=== PATIENT | female | born 1975 | race Caucasian/White ===

== ENCOUNTER 2022-10-04 20:52 | Outpatient (REF) | payer OTHER, SELFPAY ==
[2022-10-11 16:09] LABS: Age Gdln ACOG Testing Note (.); HPV Aptima Negative (Negative); IGP, Aptima HPV, rfx 16/18,45 Note (.)
== END 2022-10-04 20:53 | disposition home or self-care (01) ==
LOC: LAB 20:52
PROVIDERS: PCP Family Medicine; Visit Provider Physician Assistant
DX: Z12.4 Encounter for screening for malignant neoplasm of cervix (principal)
CPT/HCPCS: 87624; G0145

== ENCOUNTER 2022-12-26 07:21 | Outpatient (OUT) | payer OTHER, SELFPAY ==
--- NOTE | 2022-12-26 07:27 | MM_ITS ---
Patient Name: DOMINIK EVANGELISTA MR#: [id number] : 1975 Exam Date: 12/26/2022 Ordering Doctor: DR Rodrick Pepe . RADIOLOGY REPORT PROCEDURE: MM TOMOSYNTHESIS SCREENING BI COMPARISON: MG MAMM SCREEN 3D MARÍA CAD, 11/12/2021. MG MAMM SCREEN 3D MARÍA CAD, 11/11/2020. MG MAMM SCREEN MARÍA W CAD, 06/12/2018. MG MAMM MARÍA SCRN W CAD DIG, 02/21/2014. INDICATIONS: Screening mammogram Calculator Name NCI Breast Cancer Risk Assessment Tool 5 Year Breast Cancer Risk 1.70% Lifetime Breast Cancer Risk 18.50% Personal Breast Cancer No Personal Ovarian Cancer No Treatments None Family Cancers Sister with breast cancer at age 45; Father with lung cancer at age 67. LOCATION: [facility] BREAST COMPOSITION: Scattered areas fibroglandular density. FINDINGS: DIAGNOSTIC CATEGORY 1--NEGATIVE. RIGHT BREAST: No significant suspicious finding. No significant change has occurred. LEFT BREAST: No significant suspicious finding. No significant change has occurred. RECOMMENDATIONS: ROUTINE MAMMOGRAM AND CLINICAL EVALUATION IN 12 MONTHS. PLEASE NOTE: A NORMAL MAMMOGRAM DOES NOT EXCLUDE THE POSSIBILITY OF BREAST CANCER. A CLINICALLY SUSPICIOUS PALPABLE LUMP SHOULD BE BIOPSIED. Dictated by: Eyad Salinas M.D. on 12/26/2022 at 08:38 Approved by: Eyad Salinas M.D. on 12/26/2022 at 08:46
== END 2022-12-26 07:22 | disposition home or self-care (01) ==
LOC: MAMMO 07:22
PROVIDERS: PCP Family Medicine; Visit Provider Obstetrics & Gynecology
DX: Z12.31 Encounter for screening mammogram for malignant neoplasm of breast (principal); Z80.3 Family history of malignant neoplasm of breast; Z80.1 Family history of malignant neoplasm of trachea, bronchus and lung
CPT/HCPCS: 77063; 77067

== ENCOUNTER 2023-11-07 19:06 | Outpatient (REF) | payer OTHER, SELFPAY ==
--- OUTSIDE RECORDS SUMMARY | 2023-11-07 19:09 | XMS_ITS | CCD ---
Author Organization [facility] CliniSyal Care Team Providers Care Cad Detailer Name Role Phone Beatriz Hernandez Primary Care Physician [phone] MARY ., DR HENDERSON Primary Care Unavailable NILL ., DR PARKS Admitting Unavailable NILL ., DR PARKS Consulting Unavailable NILL ., DR PARKS Attending Unavailable HOY ., DR HENDERSON Primary Care Unavailable NELI ., DR MOORE Admitting Unavailable NELI ., DR MOORE Attending Unavailable PHOEN[place], DR SUZETTE Gordon Consulting Unavailable NELI ., DR MOORE Consulting Unavailable NILLJuan Attending Unavailable BGLJuan Attending Unavailable Beatriz Hernandez Referring Unavailable NILLJuan Attending Unavailable Allergies Allergy Classification Reported Allergen(s) Allergy Type Date of Onset Reaction(s) Facility (1 source) No Known Medication Allergies; Translations: [No Known Medication Allergies] Propensity to adverse reactions (disorder) [facility] Repository Problems Active Problems Problem Classification Problem Date Documented Da te Episodic/Chronic Mood disorders (2 sources) Depressive disorder 04-01-2022 Chronic Other nutritional; endocrine; and metabolic disorders (2 sources) Overweight in adulthood with body mass index of 25 or more but less than 30 04-06-2022 Episodic Other skin disorders (2 sources) Epidermoid cyst; Translations: [Epidermal cyst] Onset: 04-06-2022 Episodic Other skin disorders (2 sources) Epidermoid cyst of skin of neck 04-06-2022 Episodic Other skin disorders (4 sources) Epidermal cyst; Translations: [EPIDERMAL CYST] Onset: 04-20-2022 Episodic Substance-related disorders (1 source) Nicotine dependence, cigarettes, uncomplicated; Translations: [NICOTINE DEPEND CIGARETTES UNCOMP] Onset: 04-27-2022 Chronic Past or Other Problems Problem Classification Problem Date Documented Da te Episodic/Chronic Other screening for suspected conditions (not mental disorders or infectious disease) (4 sources) Encounter for screening mammogram for malignant neoplasm of breast; Translations: [ENC SCR MAMMO MALIG NEOPLASM BREAST] Onset: 11-12-2021 Episodic Residual codes; unclassified (1 source) Family history of malignant neoplasm of breast; Translations: [FAMILY HX MALIG NEOPLASM OF BREAST] Onset: 11-15-2021 Episodic Residual codes; unclassified (1 source) Family history of malignant neoplasm of trachea, bronchus and lung; Translations: [FAM HX MALIG NEOPLSM TRACH BRON LNG] Onset: 11-15-2021 Episodic Results Test Name Value Interpretation Reference Range Facil ity Ambulatory Visit Summaryon 0 05-03-2022 Ambulatory Visit Summary DOMINIK EVANGELISTA :1975 Visit Date:05/03/2022 Ambulatory Visit Instructions Your Diagnosis Epidermal cyst of neck Your Care Team Attending Physician - KELLY HECK, Juan Davila Primary Care Physician - Mary HECK, Beatriz Sawyer Performed Excision of cyst (04/20/2022), Endocervical biopsy. Allergies No Known Allergies No Known Medication Allergies Problems Ongoing - Any problem that you are currently receiving treatment for. BMI 27.0-27.9,adult Depression Epidermal cyst of neck Normal [facility] General Surgery Office/Clini c Noteon 05-03-2022 General Surgery Office/Clinic Note Chief Complaint post operative follow up HPI Staff 13 day post operative follow up post excisional biopsy epidermal cyst posterior neck. History of Present Illness 2 weeks s/p excision ruptured, inflamed epidermal cyst posterior neck; doing well, denies pain, no drainage; pathology consistent with ruptured epidermal cyst. Review of Systems ROS - Provider Constitutional: no fever, no sweats, no weight loss. Eyes: no glasses, no blurred vision, no visual loss. ENMT: no dentures, no hoarseness, no swallowing difficulties, no hearing loss, no ear infection(s), no nose bleeds. Cardiovascular: normal blood pressure, no chest pain, regular heartbeat, no heart murmur. Respiratory: no shortness of breath, no cough, no asthma, no wheezing. Gastrointestinal: no nausea, no vomiting, no diarrhea, no constipation, no blood in stool, no change in bowel habits, no abdominal pain, no hepatitis. Genitourinary: no kidney stones, no urine infection, no dysuria. Musculoskeletal: no pain, no weakness. Skin: no changing moles, no rash, no skin lumps. Neurologic: no seizures, no epilepsy, no headache. Psychiatric: no emotional or psychiatric problem. Heme/Lymph: no bleeding problems, no anemia, no blood clots, no transfusions. Allergy/Immunologic: no swollen lymph nodes/glands, no IV drug abuse. Other: Additional ROS info: Except as noted in the above Review of Systems and in the History of Present Illness, all other systems have been reviewed and are negative or noncontributory. Physical Exam skin: incision healing well, no erythema or drainage, no ecchymoses Assessment/Plan 1. Epidermal cyst of neck (L72.0: Epidermal cyst) doing well, sutures removed; call with problems/questions. Follow-up No qualifying data available Problem List/Past Medical History Ongoing BMI 27.0-27.9,adult Depression Epidermal cyst of neck Historical No qualifying data Procedure/Surgical History Excision of cyst (04/20/2022), Endocervical biopsy. Medications No active medications Allergies No Known Allergies No Known Medication Allergies Social History Alcohol - Denies Alcohol Use, 04/06/2022 Substance Abuse - Denies Substance Abuse, 04/06/2022 Tobacco 10 or more cigarettes (1/2 pack or more)/day in last 30 days Tobacco Use:. Never Smokeless Tobacco Use:. Cigarettes, 10 per day. Started age 16.0 Years. Yes, 04/06/2022 Family History Diabetes mellitus type 2: Mother. Primary malignant neoplasm of female breast: Sister. Immunizations Vaccine Date Status Comments influenza virus vaccine, inactivated - Not Given Patient Refuses SARS-CoV-2 mRNA (minerva 5y-11y) vac - Not Given Patient Refuses Normal [facility] Comment on above: Result Comment: Elec tronically Signed By: KELLY HECK, Juan Castelan\Date and Time Signed: 05/03/22 14:37 EDT Pathology Noteon 05-01-2022 Pathology Note [id number] .00CD:127 Normal [facility] Operative Reporton Operative Report [id number]. 00CD:127 Normal [facility] Consent for Procedure/Surger yon 04-07-2022 Consent for Procedure/Surgery [id number] .00CD:127 Normal [facility] Facesheeton 04-07-2022 Facesheet [id number] .00CD:127 [facility] Ambulatory Visit Summaryon 0 04-06-2022 Ambulatory Visit Summary DOMINIK EVANGELISTA :1975 Visit Date:04/06/2022 Ambulatory Visit Instructions Your Care Team Attending Physician - KLELY HECK, Juan Davila Primary Care Physician - Mary HECK, Beatriz Referring Physician - Beatriz Hernandez MD Procedures Performed Endocervical biopsy. Discharge Vitals Heart Rate (Peripheral) 76 Respiratory Rate 16 Blood Pressure 118/76 Height 165.1 cm Height 65 in Weight 75.9 kg Weight 166.98 lb BMI 27.85 Medications and Immunizations Administered Not Given influenza virus vaccine, inactivated, Patient Refuses SARS-CoV-2 mRNA (tozinameran 5y-11y) vac, Patient Refuses Allergies No Known Allergies No Known Medication Allergies Problems Ongoing - Any problem that you are currently receiving treatment for. BMI 27.0-27.9,adult Depression [facility] Physician Referralon 023 Physician Referral [id number] .[id number]:127 Normal [facility] MG MAMM SCREEN 3D MARÍA CADon 11-12-2021 MG MAMM SCREEN 3D MARÍA CAD Patient: DOMINIK EVANGELISTA. Exam Date: 11/12/2021 : 1975 Gender:F Ordering : DR TERESA QUINTEROS . Admission #: [id number] Family : DR BEATRIZ HERNANDEZ . Order #: [id number] CLICK HERE TO VIEW EXAM RADIOLOGY REPORT PROCEDURE: MAMMOGRAM SCREENING 3D BILATERAL CAD COMPARISON: MG MAMM SCREEN MARÍA W CAD, 06/12/2018. MG MAMM SCREEN 3D MARÍA CAD, 11/11/2020. INDICATIONS: Screening mammography Calculator Name NCI Breast Cancer Risk Assessment Tool 5 Year Breast Cancer Risk 1.60% Lifetime Breast Cancer Risk 18.60% Personal Breast Cancer No Personal Ovarian Cancer No Treatments None Family Cancers Sister with breast cancer at age 45; Father with lung cancer at age 67. LOCATION: [facility] BREAST COMPOSITION: Scattered areas fibroglandular density. FINDINGS: DIAGNOSTIC CATEGORY 1--NEGATIVE. NO CHANGE FROM COMPARISON ASSESSMENT. Scattered benign-appearing calcifications are present. RIGHT BREAST: No significant suspicious finding. LEFT BREAST: No significant suspicious finding. RECOMMENDATIONS: ROUTINE MAMMOGRAM AND CLINICAL EVALUATION IN 12 MONTHS. PLEASE NOTE: A NORMAL MAMMOGRAM DOES NOT EXCLUDE THE POSSIBILITY OF BREAST CANCER. A CLINICALLY SUSPICIOUS PALPABLE LUMP SHOULD BE BIOPSIED. Dictated by: Suzette Varela MD on 11/12/2021 at 08:42 Approved by: Suzette Varela MD on 11/12/2021 at 08:43 Normal [facility] Vital Signs Date Time Vital Sign Value Performing Clinician Chanell bueno 04-06-2022 14:29-0500 Blood Pressure Location Juan MENDOZA [facility] 04-06-2022 14:29-0500 Diastolic blood pressure 76 mm[Hg] Juan PEDERSONL [facility] 04-06-2022 14:29-0500 Heart rate 76 /min Juan PEDERSONL [facility] 04-06-2022 14:29-0500 Respiratory rate 16 /min Juan PEDERSONL [facility] 04-06-2022 14:29-0500 Systolic blood pressure 118 mm[Hg] Juan PEDERSONL [facility] Encounters Encounter Date Encounter Type Care Provider Facility Start: 05-03-2022 End: 05-04-2022 ambulatory Juan MENDOZA Facility:[facility] Start: 05-03-2022 End: 05-03-2022 Patient encounter procedure Juan MENDOZA [facility] Start: 04-20-2022 End: 04-21-[address] BEATRIZ HERNANDEZ . Facility: Start: 04-06-2022 End: 04-07-2022 ambulatory Juan MENDOZA Facility:[facility] Start: 04-06-2022 End: 04-06-2022 Patient encounter procedure Juan MENDOZA General [facility] Start: 03-29-2022 ambulatory Juan MENDOZA Facility:[facility] Start: 11-12-2021 End: 11-13-[address] BEATRIZ HERNANDEZ . Facility: Procedures Date Procedure Procedure Detail Performing Clinician Start: 04-20-2022 Excision of cyst Michae yodit MENDOZA Endocervical biopsy Juan MENDOZA Immunizations Immunization Date Immunization Notes Care Provider Fa cility NEGATED: Highlighted row has not occurred!04-06-2022 influenza virus vaccine, unspecified formulation Juan MENDOZA [facility] NEGATED: Highlighted row has not occurred!04-06-2022 SARS-CoV-2 mRNA (tozinameran 5y-11y) vaccine Juan MENDOZA [facility] Payers Date Payer Category Payer Unknown [id number] [id number] 1975 Unknown [id number] [id number] [id number] 1975 Unknown [id number] [id number] [id number] 1975 Unknown [id number] 2.16.8 [id number] 1975 Unknown [id number] 2.16.8 [id number] 1959 Unknown [id number] 1957 Unknown [id number] Social History Date Type Detail Facility Start: 04-06-2022 Tobacco smoking status Heavy t obacco smoker (finding) [facility] Tobacco smoking status Never [facility] Sex Assigned At Female [facility] Functional Status Date Assessment Result Facility 04-06-2022 Functional Status N/A [facility] Clinical Note 04-20-2022 Note Date & Type Note Facility 04-20-2022 Note OPERATIVE NOTE OPERATION DATE: 04/20/2022 PREOPERATIVE DIAGNOSIS: Previously infected epidermal cyst posterior neck. POSTOPERATIVE DIAGNOSIS: Previously infected epidermal cyst posterior neck. PROCEDURE: Excisional biopsy epidermal cyst posterior neck. SURGEON: Juan Mendoza M.D. ANESTHESIA: Local with 0.5% Marcaine plain. ESTIMATED BLOOD LOSS: Less than 3 mL. INDICATIONS AND CONSENT: Patient is a 47-year-old female with a history of previously infected epidermal cyst of the posterior neck x2, with a recent episode of infection. She now presents for excision biopsy. Indications, risks, benefits, alternatives of proceeding were explained extensively to the patient, including the risks of bleeding, infection, scarring, pain, recurrence, need for further surgery. All of her questions were answered. Informed consent was obtained. PROCEDURE: Patient brought to the procedure room, placed in the left lateral decubitus position. The area was prepped and draped in the usual sterile fashion. It was anesthetized with 0.5% Marcaine plain. An elliptical incision was made over the incision, encompassing the central core, carried down through subcutaneous tissue using sharp dissection. A 1 cm inflamed epidermal cyst was identified and excised down to subcutaneous tissue. It was sent off to Pathology. The wound was irrigated. Deep subcutaneous tissue was re-approximated with interrupted 4-0 Monocryl suture. The skin was then closed with interrupted 4-0 nylon sutures. There was good hemostasis. Patient tolerated procedure, was discharged to home in good condition, is to follow up in 10 days for suture removal. She is to call sooner with any problems or questions. CC: Beatriz Hernandez M.D. [facility] Clinical Note 04-06-2022 Note Date & Type Note Facility 04-06-2022 Note Chief Complaint consultation for sebaceous cyst [facility] Staff 47 year old female presents on consultation from Dr. Hernandez for sebaceous cyst left posterior neck. Reports 2-3 week history of two tender nodules, one left posterior neck and the other base of hair line posterior neck. Reports the nodule in hairline is soft and feels fluid filled. The nodule to the left is solid. Was prescribed Doxycycline 100mg BID x 10 days on 03/25, finished this two days ago. States tenderness has resolved and size of nodules have reduced. History of Present Illness 47 yo female referred for infected cyst posterior neck, midline, swollen and red, sore began 3 weeks ago, no drainage; had similar lesion there several years ago, but resolved, no previous I & D or excision; treated with antibiotics for 10 days with resolution of tenderness, some decrease in size, had small nodule left posterior neck as well, that has decreased in size; no asa or NSAID use; smokes daily. Review of Systems PHQ Score Initial Depression Screen Score: 0 ROS - Provider Constitutional: no fever, no sweats, no weight loss. Eyes: no glasses, no blurred vision, no visual loss. ENMT: no dentures, no hoarseness, no swallowing difficulties, no hearing loss, no ear infection(s), no nose bleeds. Cardiovascular: normal blood pressure, no chest pain, regular heartbeat, no heart murmur. Respiratory: no shortness of breath, no cough, no asthma, no wheezing. Gastrointestinal: no nausea, no vomiting, no diarrhea, no constipation, no blood in stool, no change in bowel habits, no abdominal pain, no hepatitis. Genitourinary: no kidney stones, no urine infection, no dysuria. Musculoskeletal: no pain, no weakness. Skin: no changing moles, no rash, yes skin lumps. Neurologic: no seizures, no epilepsy, no headache. Psychiatric: no emotional or psychiatric problem. Heme/Lymph: no bleeding problems, no anemia, no blood clots, no transfusions. Allergy/Immunologic: no swollen lymph nodes/glands, no IV drug abuse. Other: Additional ROS info: Except as noted in the above Review of Systems and in the History of Present Illness, all other systems have been reviewed and are negative or noncontributory. Physical Exam Vitals & Measurements HR: 76(Peripheral) RR: 16 BP: 118/76 HT: 65 in HT: 165.1 cm WT: 75.9 kg WT: 166.98 lb BMI: 27.85 HEENT: normal conjunctiva, sclera clear, no scleral icterus, EOM intact, PERRLA, oral mucosa moist without lesions. Neck: trachea midline, no mass, symmetric, no thyromegaly or nodules, no adenopathy Respiratory: lungs CTA, respirations non labored. Cardiovascular: regular rate and rhythm, no murmur, no pedal edema or varicosities. Gastrointestinal: soft, non distended, no tenderness, no masses, no palpable hernias, diastasis recti no, no hepatosplenomegaly; normal bs Lymphatic: no cervical adenopathy, no axillary adenopathy, no inguinal adenopathy. Musculoskeletal: normal gait, digits and nails without infection, nodes, cyanosis, clubbing. Skin: no rashes, no lesions, no ulcers, posterior neck, midline near hairline with 1 cm swollen, epidermal cyst, soft, resolving erythema, no drainage or open areas; left posterior neck with small lymph node, nontender. Psychiatric/Neuro: oriented to time, place, person, judgement normal, affect appropriate for age, insight intact, no focal deficits. Tests: review of old records completed, Discussed surgical options, risks, and possible complications with patient. Assessment/Plan 1. Epidermal cyst of neck (L72.0: Epidermal cyst) plan excisional biopsy under local anesthesia at [facility], informed consent obtained. Follow-up No qualifying data available Problem List/Past Medical History Ongoing BMI 27.0-27.9,adult Depression Epidermal cyst of neck Historical No qualifying data Procedure/Surgical History Endocervical biopsy. Medications No active medications Allergies No Known Allergies No Known Medication Allergies Social History Alcohol - Denies Alcohol Use, 04/06/2022 Substance Abuse - Denies Substance Abuse, 04/06/2022 Tobacco 10 or more cigarettes (1/2 pack or more)/day in last 30 days Tobacco Use:. Never Smokeless Tobacco Use:. Cigarettes, 10 per day. Started age 16.0 Years. Yes, 04/06/2022 Family History Diabetes mellitus type 2: Mother. Primary malignant neoplasm of female breast: Sister. Immunizations Vaccine Date Status Comments influenza virus vaccine, inactivated - Not Given Patient Refuses SARS-CoV-2 mRNA (tolakishan 5y-11y) vac - Not Given Patient Refuses [facility] Comment on above: Result Comment: Elec tronically Signed By: KELLY HECK, Juan Castelan\Date and Time Signed: 04/06/22 15:16 EST Evaluation + Plan note Note Date & Type Note Facility Evaluation + Plan note No data available for this section [facility] Discharge instructions Note Date & Type Note Facility Hospital Discharge instructions No data available for this section General [facility] Progress note Note Date & Type Note Facility Progress note No data available for this section [facility] Summary Purpose Family History No Family History Records FoundNo Family History Records Found Advance Directives No Advanced Directives Records FoundNo Advanced Directives Records Found Additional Source Comments Patient Care team informatio n (unrecognized section and content) Personnel Name: Beatriz Hernandez MD Address: Address: [address] [place] [address] [place], [place] [address] Personnel Name: Beatriz Hernandez MD Address: Address: [address] [place], [place] [address] INFORMATION SOURCE (unrecogn ized section and content) DATE CREATED AUTHOR 04/27/2022 [facility] DATE CREATED AUTHOR AUTHOR'S ORGANIZ ATION 05/06/2022 [facility] FOR RECORDS PERTAINING TO PATIENTS WHO ARE OR HAVE BEEN ENROLLED IN A CHEMICAL DEPENDENCY/SUBSTANCEABUSE PROGRAM, SOME INFORMATION MAY BE OMITTED. This clinical summary was aggregated from multiple sources. Caution should be exercised in using it in the provision of clinical care. This summary normalizes information from multiple sources, and as a consequence, information in this document may materially change the coding, format and clinical context of patient data. In addition, data may be omitted in some cases. CLINICAL DECISIONS SHOULD BE BASED ON THE PRIMARY CLINICAL RECORDS. [facility] [employer] [facility]. provides no warranty or guarantee of the accuracy or completeness of information in this document.
[2023-11-13 14:09] LABS: Age Gdln ACOG Testing Note (.); HPV Aptima Negative (Negative); IGP, Aptima HPV, rfx 16/18,45 Note (.)
== END 2023-11-07 19:07 | disposition home or self-care (01) ==
LOC: LAB 19:06
PROVIDERS: PCP Family Medicine; Visit Provider Physician Assistant
DX: Z01.419 Encounter for gynecological examination (general) (routine) without abnormal findings (principal)
CPT/HCPCS: 87624; 88175

== ENCOUNTER 2023-12-29 07:13 | Outpatient (OUT) | payer OTHER, SELFPAY ==
--- OUTSIDE RECORDS SUMMARY | 2023-12-29 07:16 | XMS_ITS | CCD ---
Author Organization [facility] Care Team Providers Care Road Boss Name Role Phone Beatriz Hernandez Primary Care Physician MARY ., DR HENDERSON Primary Care Unavailable NILL ., DR PARKS Admitting Unavailable NILL ., DR PARKS Consulting Unavailable NILL ., DR PARKS Attending Unavailable MARY ., DR HENDERSON Primary Care Unavailable NELI ., DR MOORE Admitting Unavailable NELI ., DR MOORE Attending Unavailable KULDEEP, DR SUZETTE Gordon Consulting Unavailable NELI ., DR MOORE Consulting Unavailable Juan MENDOZA Attending Juan Sarmiento Attending Beatriz Ramirez Referring Unavailable Juan MENDOZA Attending Unavailable PATRICIA COOPER Attending Unavailable Beatriz Hernandez MD Primary Care Provider [phone] Allergies Allergy Classification Reported Allergen(s) Allergy Type Date of Onset Reaction(s) Facility (1 source) No Known Medication Allergies; Translations: [No Known Medication Allergies] Propensity to adverse reactions (disorder) [facility] Repository Medications Current Medications Medication Drug Class(es) Dates Sig (Normalized) Sig (Original) levonorgestrel 0.571332 mg/hr intrauterine system (4 sources) Progestin, Progestin-containin g Intrauterine Device Levonorgestrel (Mirena, 52 MG,) 20 MCG/DAY intrauterine device 52 mg by Intrauterine route yearly. Active Problems Active Problems Problem Classification Problem Date Documented Da te Episodic/Chronic Mood disorders (2 sources) Depressive disorder 04-01-2022 Chronic Other nutritional; endocrine; and metabolic disorders (2 sources) Overweight in adulthood with body mass index of 25 or more but less than 30 04-06-2022 Episodic Other screening for suspected conditions (not mental disorders or infectious disease) (6 sources) Encounter for screening mammogram for malignant neoplasm of breast; Translations: [Patient encounter status] Onset: 11-12-2021 Episodic Other skin disorders (2 sources) Epidermoid [...] Classification Problem Date Documented Da te Episodic/Chronic Residual codes; unclassified (1 source) Family history of malignant neoplasm of breast; Translations: [FAMILY HX MALIG NEOPLASM OF BREAST] Onset: 11-15-2021 Episodic Residual codes; unclassified (1 source) Family history of malignant neoplasm of trachea, bronchus and lung; Translations: [FAM HX MALIG NEOPLSM TRACH BRON LNG] Onset: 11-15-2021 Episodic Results Test Name Value Interpretation Reference Range Facil ity IGP,APTIMA HPV,AGE GDLNon AGE GDLN ACOG TESTING Note . [facility] Comment on above: TESTS RESULT FLAG UN ITS REF RANGE LAB Clinician Provided Cytology Information Source.............Cervix;Endocervix No. of containers..01 ThinPrep Vial Age Algo ACOG [place]... 30- FLAG LEGEND: L-Low Normal,H-High Normal,LL-Alert Low,HH-Alert High <-Panic Low,>-Panic High,A-Abnormal,AA-Critical Abnormal Performed at: 01 =[facility] [place] [address] Lehta Romeo MD, HPV APTIMA Negative Negative [facility] Comment on above: This nucleic acid am plification test detects fourteen high- risk HPV types (16,18,31,33,35,39,45,51,52,56,58,59,66,68) without differentiation. Performed at: =G - [facility], [place] [id number] Payroll Benefits Clerk: Letha Romeo MD, Phone: [phone] Performed at: - [facility], [place] [id number] Payroll Benefits Clerk: Letha Romeo MD, Phone: [phone] IGP, APTIMA HPV, RFX 16/18,45 Note . [facility] Comment on above: TESTS RESULT FLAG UN ITS REF RANGE LAB DIAGNOSIS: 02 NEGATIVE FOR INTRAEPITHELIAL LESION OR MALIGNANCY. Specimen adequacy: 02 Satisfactory for evaluation. No endocervical component is identified. Performed by: Mauricio Khoury, Drafter Refrigeration (ASCP) . 02 Note: Note 02 The Pap smear is a screening test designed to aid in the detection of premalignant and malignant conditions of the uterine cervix. It is not a diagnostic procedure and should not be used as the sole means of detecting cervical cancer. Both false-positive and false-negative reports do occur. Test Methodology: Note 02 This liquid based ThinPrep(R) pap test was screened with the use of an image guided system. HPV Genotype Reflex Note 02 Criteria not met, HPV Genotype not performed. FLAG LEGEND: L-Low Normal,H-High Normal,LL-Alert Low,HH-Alert High <-Panic Low,>-Panic High,A-Abnormal,AA-Critical Abnormal Performed at: [address] [address] Letha Romeo MD, BRUSH-SPATULA CERVIX ENDOCERVIX [facility] Summaryon 0 05-03-2022 Ambulatory Visit Summary DOMINIK WALSH :1975 Visit Date:05/03/2022 Ambulatory Visit Instructions Your Diagnosis Epidermal cyst of neck Your Care Team Attending Physician - TEREZA HECK, Juan Davila Primary Care Physician - Mary HECK, Beatriz Procedures Performed Excision of cyst (04/20/2022), Endocervical biopsy. Allergies No Known Allergies No Known Medication Allergies Problems Ongoing - Any problem that you are currently receiving treatment for. BMI 27.0-27.9,adult Depression Epidermal cyst of neck Normal [facility] General Surgery Office/Clini c Noteon 05-03-2022 General [...] - Not Given Patient Refuses SARS-CoV-2 mRNA (tocleonameran 5y-11y) vac - Not Given Patient Refuses Normal [facility] Comment on above: Result Comment: Elec tronically Signed By: TEREZA HECK, Juan Castelan\Date and Time Signed: 05/03/22 14:37 EDT Pathology Noteon 05-01-2022 Pathology Note [id number] 0CD:127 Normal [facility] Operative Reporton Operative Report [id number] CD:127 [facility] Consent for Procedure/Surger yon 04-07-2022 Consent for Procedure/Surgery [id number] 0CD:127 [facility] Facesheeton 04-07-2022 Facesheet [id number]#1.0 0CD:127 [facility] Ambulatory Visit Summaryon 0 04-06-2022 Ambulatory Visit Summary DOMINIK WALSH :1975 Visit Date:04/06/2022 Ambulatory Visit Instructions Your Care Team Attending Physician - TEREZA HECK, Juan Davila Primary Care Physician - [...] currently receiving treatment for. BMI 27.0-27.9,adult Depression [facility] Physician Referralon 023 Physician Referral [id number] 0CD:127 [facility] MG MAMM SCREEN 3D MARÍA CADon 11-12-2021 MG MAMM SCREEN 3D MARÍA CAD Patient: DOMINIK WALSH. Exam Date: 11/12/2021 : 1975 Gender:F Ordering : DR TERESA PEPE . Admission #: [id number] Family : DR BEATRIZ HERNANDEZ . Order #: [id number] CLICK HERE TO VIEW EXAM RADIOLOGY REPORT [...] lung cancer at age 69. LOCATION: [facility] BREAST COMPOSITION: Scattered areas fibroglandular density. FINDINGS: [...] Varela MD on 11/12/2021 at 08:43 Normal [facility] Vital Signs Date Time Vital Sign Value Performing Clinician Facility 11-07-2023 15:05-0400 Body mass index (BMI) [Ratio] 25.93 kg/m2 Patricia DIXON Work Phone: [facility] 11-07-2023 15:05-0400 Body weight 70.67 kg Patricia DIXON Work Phone: [facility] 11-07-2023 15:05-0400 Diastolic blood pressure 70 mm[Hg] Patricia DIXON Work Phone: [facility] 11-07-2023 15:05-0400 Systolic blood pressure 118 mm[Hg] Patricia DIXON Work Phone: [facility] 04-06-2022 14:29-0500 Blood Pressure Location Juan MENDOZA [facility] 04-06-2022 14:29-0500 Diastolic blood pressure 76 mm[Hg] Juan MENDOZA [facility] 04-06-2022 14:29-0500 Heart rate 76 /min Juan MENDOZA [facility] 04-06-2022 14:29-0500 Respiratory rate 16 /min Juan NILL [facility] 04-06-2022 14:29-0500 Systolic blood pressure 118 mm[Hg] Juan PEDERSONL [facility] Encounters Encounter Date Encounter Type Care Provider Facility Start: 11-07-2023 End: 11-07-2023 Patient encounter procedure Patricia DIXON Work Phone: [facility] Work Phone: Start: 11-07-2023 End: 11-07-2023 Periodic preventive med est patient 40-64yrs Patricia DIXON Work Phone: [facility] Comment on above: Well woman exam with routine gynecological exam; Breast cancer screening by mammogram Start: 11-07-2023 End: 11-07-2023 ambulatory PATRICIA COOPER Not Available Start: 11-07-2023 End: 11-07-2023 Bamboo flowsheet Patricia DIXON Work Phone: [facility] Start: 11-07-2023 End: 11-13-2023 Bamboo flowsheet Patricia DIXON Work Phone: [facility] Start: 11-07-2023 End: 11-13-2023 [facility] Result Encounter Patricia DIXON Work Phone: [facility] Unsolicited Start: 05-03-2022 End: 05-04-2022 [facility]ulatory [facility] Start: 05-03-2022 End: 05-03-2022 Patient encounter procedure Juan Davila NILL General Surgery Nill/[facility] Start: 04-20-2022 End: 04-21-[address] BEATRIZ HERNANDEZ . Facility: Start: 04-06-2022 End: 04-07-2022 ambulatory Juan R NILKriss [facility] Start: 04-06-2022 End: 04-06-2022 Patient encounter procedure Juan Davila NILL General Surgery [facility] Start: 03-29-2022 ambulatory Juan MENDOZA Facility:[facility] Start: 11-12-2021 End: 11-13-[address] BEATRIZ HERNANDEZ . Facility: Procedures Date Procedure Procedure Detail Performing Clinician Start: 11-07-2023 IGP,APTIMA HPV,AGE GDLN Patricia DIXON Work Phone: Start: 04-20-2022 Excision of cyst Michae l TEREZA Endocervical biopsy Juan MENDOZA Plan of Treatment Date Care Activity Detail Author Start: 11-12-2024 End: 11-12-2024 Patient encounter procedure 11/12/2024 3:00 PM EDT Office Visit [facility] [address] [address] Teresa Pepe DO [address] [place], [place] [id number] [facility] Start: 11-07-2023 End: 11-07-2023 Patient encounter procedure 11/07/2023 3:00 PM EDT Office Visit [facility] [address] [address] Patricia Cooper PA [address] [place], [place] [id number] Arrived [facility] Comment on above: Arrived Start: 11-07-2023 End: 01-06-2025 MG Breast - bilateral Screening Bilateral screening mammogram Imaging Routine Breast cancer screening by mammogram Expected: 11/07/2023 (Approximate), Expires: 01/06/2025 [facility] Work Phone: Comment on above: Expected: 11/07/2023 (Approximate), Expires: 01/06/2025 THIN PREP TIS PAP AN D HR HPV DNA THIN PREP TIS PAP AND HR HPV DNA Pathology and Cytology Routine Well woman exam with routine gynecological exam Ordered: 11/07/2023 [facility] Comment on above: Ordered: 11/07/2023 Immunizations Immunization Date Immunization Notes Care Provider Vazquez burgos NEGATED: Highlighted row has not occurred!04-06-2022 influenza virus vaccine, unspecified formulation Juan MENDOZA [facility] NEGATED: Highlighted row has not occurred!04-06-2022 SARS-CoV-2 mRNA (tozinameran 5y-11y) vaccine Juan PEDERSONKriss [facility] Payers Date Payer Category Payer Unknown [employer] [id number] 2022-Present [address] [address] [place] [address] [id number] 1975 Unknown [id number] 3 1975 Unknown [id number] 3 1975 Unknown [id number] 7 1975 Unknown [id number] 7 1975 Unknown [id number] 7 1977 Unknown [id number] 59 1959 Unknown [id number] 1957 Unknown [id number] Social History Date Type Detail Facility Start: 04-06-2022 Tobacco smoking status Heavy tobacco smoker (finding) [facility] Tobacco smoking status Never [facility] Sex Assigned At Female [facility] Tobacco smoking status ALIS Tobacco smoking consumption unknown [facility] Start: 1975 Sex assigned at Not on file [facility] Functional Status Date Assessment Result Facility 04-06-2022 Functional Status N/A [facility] History of Present illness Narrative 11-07-2023 ZACK Bernardo - 11/07/2023 3:00 PM EDT Note Date & Type Note Facility 11-07-2023 History of Presen t illness Narrative Reason for Appointment: Patient ID: Dominik Walsh is a 48 y.o. female who presents for Well Women Visit Patient presents today for Annual Exam. MEDICATIONS Current Outpatient Medications Medication Instructions Mirena (52 MG) 52 mg, Intrauterine, Yearly ALLERGIES No Known Allergies PROBLEMS Active Ambulatory Problems Diagnosis Date Noted No Active Ambulatory Problems Resolved Ambulatory Problems Diagnosis Date Noted No Resolved Ambulatory Problems No Additional Past Medical History HISTORY PAST MEDICAL HISTORY SOCIAL HISTORY History reviewed. No pertinent past medical history. Social History Tobacco Use Smoking status: Not on file Smokeless tobacco: Not on file Substance Use Topics Alcohol use: Not on file Drug use: Not on file FAMILY HISTORY No family history on file. SURGICAL HISTORY Past Surgical History: Procedure Laterality Date TUBAL LIGATION REVIEW OF SYSTEMS Review of Systems: Review of Systems Constitutional: Negative. HENT: Negative. Eyes: Negative. Respiratory: Negative. Cardiovascular: Negative. Gastrointestinal: Negative. Genitourinary: Negative. Musculoskeletal: Negative. Skin: Negative. Neurological: Negative. All other systems reviewed and are negative. Hematological: Negative. Endocrine: Negative. Allergic/Immunologic: Negative. OBJECTIVE Objective: Physical Exam Constitutional: Appearance: Normal appearance. She is well-developed. Genitourinary: Vulva normal. Right Adnexa: not tender and no mass present. Left Adnexa: not tender and no mass present. No cervical discharge. Breasts: Breasts are soft. Right: Normal. Left: Normal. HENT: Head: Normocephalic. Nose: Nose normal. Mouth/Throat: Mouth: Mucous membranes are moist. Cardiovascular: Rate and Rhythm: Normal rate and regular rhythm. Pulmonary: Effort: Pulmonary effort is normal. Breath sounds: Normal breath sounds. Abdominal: General: Bowel sounds are normal. There is no distension. Palpations: Abdomen is soft. Tenderness: There is no abdominal tenderness. There is no guarding or rebound. Musculoskeletal: General: No swelling. Normal range of motion. Cervical back: Normal range of motion. Right lower leg: No edema. Left lower leg: No edema. Neurological: General: No focal deficit present. Mental Status: She is alert and oriented to person, place, and time. Skin: General: Skin is warm and dry. Psychiatric: Mood and Affect: Mood normal. Behavior: Behavior normal. Vitals and nursing note reviewed. Exam conducted with a multi disciplined language analyst present. Vitals: Estimated body mass index is 25.93 kg/m as calculated from the following: Height as of 10/04/22: 5' 5 . Weight as of this encounter: 155 lb 12.8 oz. BP: 118/70 No LMP recorded. Patient has had an implant. ASSESSMENT & PLAN ICD-10-CM 1. Well woman exam with routine gynecological exam Z01.419 THIN PREP TIS PAP AND HR HPV DNA 2. Breast cancer screening by mammogram Z12.31 Bilateral screening mammogram Bilateral screening mammogram Annual Exam: Patient presents today for an annual exam. Patient states she is doing well and has no complaints. Pap was obtained without difficulty. Orders Placed This Encounter Procedures Bilateral screening mammogram Follow Up: Patient is to return in one year for annual unless needed otherwise. Documented by Annie Doran LPN on behalf of: ZACK Bernardo documented in this encounter [facility] Clinical Note 04-20-2022 Note Date & Type [...] or questions. CC: Beatriz Hernandez M.D. [facility] Clinical Note 04-06-2022 Note Date & Type Note Facility 04-06-2022 Note Chief Complaint consultation for sebaceous cyst [facility] Staff 47 year old female presents on [...] plan excisional biopsy under local anesthesia at [facility], informed consent obtained. Follow-up No qualifying [...] - Not Given Patient Refuses SARS-CoV-2 mRNA (tocleonameran 5y-11y) vac - Not Given Patient Refuses [facility] Comment on above: Result Comment: Elec tronically Signed By: TEREZA HECK, Juan Castelan\Date and Time Signed: 04/06/22 15:16 EST Evaluation + Plan note Note Date & Type Note Facility Evaluation + Plan note No data available for this section [facility] Evaluation note Note Date & Type Note Facility Evaluation note Diagnosis Well woman exam with routine gynecological exam Routine gynecological examination Breast cancer screening by mammogram documented in this encounter [facility] Discharge instructions Note Date & Type Note Facility Hospital Discharge instructions No data available for this section [facility] Progress note Note Date & Type Note Facility Progress note No data available for this section [facility] Summary Purpose Family History No Family History Records FoundNo Family History Records FoundNo Family History Records Found Advance Directives No Advanced Directives Records FoundNo Advanced Directives Records FoundNo Advanced Directives Records Found Additional Source Comments Patient Care team informatio n (unrecognized section and content) Road Boss Relationship Specialty Start Date End Date Beatriz Hernandez MD [address] [place] [address] PCP - General Family Medicine 08/31/22 Road Boss Relationship Specialty Start Date End Date Beatriz Hernandez MD [address] [place] [address] PCP - General Family Medicine 08/31/22 INFORMATION SOURCE (unrecogn ized section and content) DATE CREATED AUTHOR 04/27/2022 [facility] DATE CREATED AUTHOR AUTHOR'S ORGANIZ ATION 05/06/2022 [facility] DATE CREATED AUTHOR AUTHOR'S ORGANIZ ATION 11/09/2023 [facility] Special[facility] EPIC Reason for Visit (unrecogniz ed section and content) Reason Comments Well Women Visit FOR RECORDS PERTAINING TO PATIENTS WHO ARE [...] BE BASED ON THE PRIMARY CLINICAL RECORDS. [facility] [employer] provides no warranty or guarantee of the accuracy or completeness of information in this document.
--- NOTE | 2023-12-29 07:18 | MM_ITS ---
Patient Name: DOMINIK EVANGELISTA MR#: [id number] : 1975 Exam Date: 12/29/2023 Ordering Doctor: DR Rodrick Pepe . RADIOLOGY REPORT PROCEDURE: MM TOMOSYNTHESIS SCREENING BI COMPARISON: MM TOMOSYNTHESIS SCREENING BI, 12/26/2022. MG MAMM SCREEN 3D MARÍA CAD, 11/12/2021. MG MAMM SCREEN 3D MARÍA CAD, 11/11/2020. MG MAMM MARÍA SCRN W CAD DIG, 02/21/2014. INDICATIONS: Screening Calculator Name NCI Breast Cancer Risk Assessment Tool 5 Year Breast Cancer Risk 1.70% Lifetime Breast Cancer Risk 18.20% Personal Breast Cancer No Personal Ovarian Cancer No Treatments None Family Cancers Sister with breast cancer at age 45; Father with lung cancer at age 67. LOCATION: [facility] BREAST COMPOSITION: There are scattered areas of fibroglandular density. FINDINGS: DIAGNOSTIC CATEGORY 2--BENIGN FINDING: RIGHT BREAST: No significant suspicious finding. Scattered benign-appearing calcifications are present. No significant change has occurred. LEFT BREAST: No significant suspicious finding. No significant change has occurred. RECOMMENDATIONS: ROUTINE MAMMOGRAM AND CLINICAL EVALUATION IN 12 MONTHS. PLEASE NOTE: A NORMAL MAMMOGRAM DOES NOT EXCLUDE THE POSSIBILITY OF BREAST CANCER. A CLINICALLY SUSPICIOUS PALPABLE LUMP SHOULD BE BIOPSIED. Dictated by: Eyad Salinas M.D. on 12/29/2023 at 11:44 Approved by: Eyad Salinas M.D. on 12/29/2023 at 11:47
== END 2023-12-29 07:14 | disposition home or self-care (01) ==
LOC: MAMMO 07:14
PROVIDERS: PCP Family Medicine; Visit Provider Obstetrics & Gynecology
DX: Z12.31 Encounter for screening mammogram for malignant neoplasm of breast (principal); Z80.3 Family history of malignant neoplasm of breast; Z80.1 Family history of malignant neoplasm of trachea, bronchus and lung
CPT/HCPCS: 77063; 77067

== ENCOUNTER 2024-12-03 19:03 | Outpatient (REF) | payer OTHER, SELFPAY ==
--- OUTSIDE RECORDS SUMMARY | 2024-12-03 15:00 | XMS_ITS | Encounter Summary ---
Author Organization [facility] Address [address] [place] [address] Care Team Providers Care Desktop Support Engineer Name Role Phone Armani Hernandez MD Primary Care Provider [phone] Reason for Visit * ReasonCommentsWell Women Visit Encounter Details DateTypeDepartmentCare Team (Latest Contact Info)Pgsmtviifhr40/28/2025 3:00 PM EDTOffice Visit [facility] [address] [place] [phone] Rodrick Pepe DO [address] [place] [address] Well woman exam with routine gynecological exam; Encounter for screening mammogram for malignant neoplasm of breast Social History Tobacco UseTypesPacks/DayYears UsedDateSmoking Tobacco: Never Assessed CommentsNoSex and Gender InformationValueDate RecordedSex Assigned at BirthNot on fileLegal UnmKienid14/15/2023 11:47 PM EDTGender IdentityNot on fileSexual OrientationNot on filedocumented as of this encounter Last Filed Vital Signs Vital SignReadingTime TakenCommentsBlood Tkhwighw866/6012/03/2024 3:15 PM EDT Pulse--Temperature--Respiratory Rate--Oxygen Saturation--Inhaled Oxygen Concentration--Lastum94.6 kg (142 lb 8 oz)12/03/2024 3:15 PM EDTHeight--Body Mass Index23.7108 10:02 AM EDTdocumented in this encounter Progress Notes * Michelle Allison LPN - 12/03/2024 3:00 PM EDT Reason for Appointment: Patient ID: Kathie Walsh is a 49 y.o. female who presents for Well Women Visit Patient presents today for Annual Exam. MEDICATIONS Current Outpatient Medications Medication Instructions Mirena (52 MG) 52 mg, Intrauterine, Yearly ALLERGIES No Known Allergies PROBLEMS Active Ambulatory Problems Diagnosis Date Noted No Active Ambulatory Problems Resolved Ambulatory Problems Diagnosis Date Noted No Resolved Ambulatory Problems No Additional Past Medical History HISTORY PAST MEDICAL HISTORY SOCIAL HISTORY No past medical history on file. Social History Tobacco Use Smoking status: Not [...] appearance. She is well-developed. Genitourinary: Vulva normal. Cardiovascular: Rate and Rhythm: Normal rate and regular rhythm. Pulmonary: Effort: Pulmonary effort is normal. Breath sounds: Normal breath sounds. Abdominal: General: Bowel sounds are normal. There is no distension. Palpations: Abdomen is soft. Tenderness: There is no abdominal tenderness. There is no guarding or rebound. Musculoskeletal: General: No swelling. Normal range of motion. Right lower leg: No edema. Left lower leg: No edema. Neurological: Mental Status: She is alert and oriented to person, place, and time. Skin: General: Skin is warm and dry. Psychiatric: Mood and Affect: Mood normal. Behavior: Behavior normal. Vitals and nursing note reviewed. Exam conducted with a wincher present. Vitals: Estimated body mass index is 23.71 kg/m?? as calculated from the following: Height as of 10/04/22: 5' 5 . Weight as of this encounter: 142 lb 8 oz. BP: 106/60 No LMP recorded. Patient has had an implant. ASSESSMENT & PLAN ICD-10-CM 1. Well woman exam with routine gynecological exam Z01.419 THIN PREP TIS PAP AND HR HPV DNA 2. Encounter for screening mammogram for malignant neoplasm of breast Z12.31 Bilateral screening mammogram Bilateral screening mammogram Orders Placed This Encounter Procedures Bilateral screening mammogram Annual Wellness Exam: Patient presents today for routine annual exam. Patient states she has no current complaints. Patients vitals were reviewed and within normal limits. Growth and development is noted to be appropriate for age. Menstrual history is noted to be regular with no concerns reported. No mental health concerns was expressed. Pap Smear: Speculum was inserted into the vagina and pap was obtained without difficulty. HPV testing was performed per age guideline. Patient was advised that pap results could take anywhere from 7 to 10 days to receive and our office will reach out to the patient with those once we have them. Patient can also view results via [employer]. I reinforced importance of condom use for STI prevention. Patient declined cultures to be performed with today's visit. Breast Exam: Upon examination, clinical breast exam was noted to be normal and screening mammogram was ordered and given to patient to have obtained. Patient was counseled on breast self-awareness, including the importance of knowing what is normal for her own breasts and promptly reporting any changes such as new lumps, skin dimpling, nipple discharge, or pain. Screening mammogram was recommended annually. Discussed signs and symptoms of breast cancer and when to seek medical attention. Answered all patient questions. Contraceptive Counseling (if applicable): Patient is currently using tubal as a form of contraceptive. Follow Up: Patient is to return to our office in one year for annual exam unless needed otherwise. Documented by Michelle Allison LPN on behalf of: Rodrick Pepe DO documented in this encounter Plan of Treatment NameTypePriorityAssociated DiagnosesOrder ScheduleBilateral screening mammogram ImagingRoutine Encounter for screening mammogram for malignant neoplasm of breast Expected: 12/03/2024 (Approximate), Expires: 02/02/2026THIN PREP TIS PAP AND HR HPV DNAPathology and CytologyRoutine Well woman exam with routine gynecological exam Ordered: 12/03/2024documented as of this encounter Visit Diagnoses Diagnosis Well woman exam with routine gynecological exam Routine gynecological examination Encounter for screening mammogram for malignant neoplasm of breast documented in this encounter Care Teams Team MemberRelationshipSpecialtyStart DateEnd Date Armani Hernandez MD [address] [place] [phone] PCP - GeneralFamily Medicine08/31/22documented as of this encounter
--- OUTSIDE RECORDS SUMMARY | 2024-12-03 19:10 | XMS_ITS | Clinical Summary ---
Author Organization [facility] Address [address] [place] [place] [address] Care Team Providers Care Seo Consultant Name Role Phone Armani Hernandez MD Primary Care Provider [phone] Allergies No known active allergies Medications MedicationSigDispense QuantityRefillsLast FilledStart DateEnd DateStatus Levonorgestrel (Mirena, 52 MG,) 20 MCG/DAY intrauterine device 52 mg by Intrauterine route yearly.Active Encounters DateTypeDepartmentCare ZobaIgifyvduvut53/28/2025 3:00 PM EDTOffice Visit [facility] [address] [place] [address] Rodrick Pepe DO Well woman exam with routine gynecological exam; Encounter for screening mammogram for malignant neoplasm of ofsoxq2212/03/2024 Telephone [facility] [address] [place] [address] Michelle Allison LPN 12/03/2024amboo flowsheet [facility] [address] [facility] [place] [place] [address] Rodrick Pepe DO from Last 3 Months Social History Tobacco UseTypesPacks/DayYears UsedDateSmoking Tobacco: Never Assessed CommentsNoSex and Gender InformationValueDate RecordedSex Assigned at BirthNot on fileLegal IpkHosizk94/15/2023 11:47 PM EDTGender IdentityNot on fileSexual OrientationNot on file Last Filed Vital Signs Vital SignReadingTime TakenCommentsBlood Hpsqpcbq104/6012/03/2024 3:15 PM EDT Pulse--Temperature--Respiratory Rate--Oxygen Saturation--Inhaled Oxygen Concentration--Ohlrrk81.6 kg (142 lb 8 oz)12/03/2024 3:15 PM GRYAekkbr845.1 cm (5' 5 )10/04/2022 10:02 AM EDTBody Mass Index23.71010/04/2022 10:02 AM EDT Plan of Treatment Not on file Insurance Care Teams Team MemberRelationshipSpecialtyStart Date Armani Hernandez MD [address] [place] [address] PCP - GeneralFamily Medicine08/31/22
--- OUTSIDE RECORDS SUMMARY | 2024-12-03 19:10 | XMS_ITS | Encounter Summary ---
Author Organization [facility] Address [address] [place] [address] Care Team Providers Care Yoke Presser Name Role Phone Armani Hernandez MD Primary Care Provider [phone] Encounter Details DateTypeDepartmentCare Team (Latest Contact Info)Ajeggqhbbry84/28/2025Bamboo flowsheet [facility] [address] [place] [address] Rodrick Pepe DO [address] [place], [place] [id number] Social History Tobacco UseTypesPacks/DayYears UsedDateSmoking Tobacco: Never Assessed CommentsNoSex and Gender InformationValueDate RecordedSex Assigned at BirthNot on fileLegal GmjCkweuw08/15/2023 11:47 PM EDTGender IdentityNot on fileSexual OrientationNot on filedocumented as of this encounter Plan of Treatment Not on file documented as of this encounter Visit Diagnoses Not on filedocumented in this encounter Care Teams Team MemberRelationshipSpecialtyStart DateEnd Date Armani Hernandez MD [address] [facility] [place] [address] PCP - GeneralFamily Medicine08/31/22documented as of this encounter
--- OUTSIDE RECORDS SUMMARY | 2024-12-03 19:10 | XMS_ITS | Encounter Summary ---
Author Organization [facility] Address [address] [place] [address] Care Team Providers Care Pension Manager Name Role Phone Armani Hernandez MD Primary Care Provider [phone] Encounter Details DateTypeDepartmentCare Team (Latest Contact Info)Ntfoierdyqp02/28/2025Telephone [facility] [address] [place] [address] Michelle Allison LPN Social History Tobacco UseTypesPacks/DayYears UsedDateSmoking Tobacco: Never Assessed CommentsNoSex and Gender InformationValueDate RecordedSex Assigned at BirthNot on fileLegal UdaQnikwh55/15/2023 11:47 PM EDTGender IdentityNot on fileSexual OrientationNot on filedocumented as of this encounter Miscellaneous Notes * Telephone Encounter - Michelle Allison LPN - 12/03/2024 3:22 PM EDT Please refer to Dr Mendoza for screening colonoscopy documented in this encounter Plan of Treatment Not on file documented as of this encounter Visit Diagnoses Not on filedocumented in this encounter Care Teams Team MemberRelationshipSpecialtyStart DateEnd Date Armani Hernandez MD [address] [place] [address] PCP - GeneralFamily Medicine08/31/22documented as of this encounter
== END 2024-12-03 19:04 | disposition home or self-care (01) ==
LOC: LAB 19:03
PROVIDERS: PCP Family Medicine; Visit Provider Obstetrics & Gynecology
DX: Z01.419 Encounter for gynecological examination (general) (routine) without abnormal findings (principal)
CPT/HCPCS: 87624; 88175